=== PATIENT | male | born 1960 | race Caucasian/White ===

== ENCOUNTER → 2018-11-13 | Day surgery (SDC) | payer BC ==
[~2018-11-13] MED LIST: GLYCOPYRROLATE 0.2 MG/ML 2 ML VIAL ONE; LACTATED RINGERS 1,000 ML IV ONE; LACTATED RINGERS 1,000 ML IV SCH; LIDOCAINE 1% 20 ML VIAL (10MG/ML) FOR IV START INTRADERMA PRN; LIDOCAINE 1% INJ 10MG/ML (20 ML MDV) ONE; MIDAZOLAM 2 MG/2 ML VIAL ONE; PROPOFOL 10 MG/ML 20 ML VIAL IV ONE
[2018-11-13 08:31] VITALS: RESP 18; TEMP 97.5
[2018-11-13 08:42] LABS: Glucose,Whole Blood 194 mg/dL (75-99)
[2018-11-13 10:31] VITALS: PULSE 81
[2018-11-13 10:53] VITALS: BP 121/78
[2018-11-13 10:55] LABS: Glucose,Whole Blood 185 mg/dL (75-99)
--- NOTE | 2018-11-13 14:55 | P.PCN ---
Date of Procedure: 11/13/18 Procedure(s) Performed: Procedure: 1. Esophagogastroduodenoscopy and biopsy. 2. Total colonoscopy. Preoperative diagnosis: Iron deficiency anemia. Postoperative diagnosis: 1. Sliding hiatal hernia with no definite esophagitis or complicated reflux disease. 2. Mild antral gastritis. 3. Biopsies obtained from the duodenum, antrum and esophagus. 4. Colonoscopy within normal limits. Preparation: HalfLytely prep. Sedation: Was provided by anesthesia. Brief clinical history: The patient is a 58-year-old male who I have evaluated earlier this month for iron deficiency anemia. His hemoglobin was 10.1 around 3 or 4 weeks ago. He has no abdominal complaints, overt bleeding or upper GI symptoms. His last colonoscopy around 5 years ago. This evaluation is to assess for colon neoplasia, complicated reflux disease or other pathology. Procedure: With the patient on his left lateral decubitus position and after informed consent and adequate sedation, I passed the Olympus-GIF 190 video upper endoscope through cricopharyngeus down the esophagus. GE junction was around 39 cm from the incisors. There was a small sliding hiatal hernia but no obvious esophagitis or complicated reflux disease. The endoscope was then passed into the stomach which was insufflated with air and inspected in detail including the retroflex view in the cardia. There was some mottling and erythema in the antrum but no ulcers or erosions. Pyloric channel, did not show any ulcers. Duodenal bulb post bulbar area and descending duodenum appeared within normal limits. I obtained multiple biopsies from the duodenum, antrum and esophagus then the endoscope was withdrawn and I proceeded with the colonoscopy. Perianal area did not show any fissures or fistulas. There were no masses felt on digital rectal examination. The Olympus CFH 190L video colonoscope was then inserted in the rectum in the usual fashion and advanced to the cecum. The mucosa appeared healthy. No polyps or tumors were seen or any obvious diverticular disease or other pathology. I retroflexed the endoscope in the rectum before the endoscope was withdrawn The patient tolerated the procedure well. Plan: The patient was reassured. Will await biopsy results. We will schedule a capsule endoscopy and make further plans after that.
== END ==
LOC: ORWHC2ENDO 06:44
DX: K29.50 Unspecified chronic gastritis without bleeding (principal); K44.9 Diaphragmatic hernia without obstruction or gangrene; D50.9 Iron deficiency anemia, unspecified; E11.9 Type 2 diabetes mellitus without complications; I10 Essential (primary) hypertension; E78.5 Hyperlipidemia, unspecified; Z79.84 Long term (current) use of oral hypoglycemic drugs; Z79.82 Long term (current) use of aspirin; Z79.899 Other long term (current) drug therapy
CPT/HCPCS: 88305; 45378; 43239; J2250; J2001; J2704